=== PATIENT | male | born 1955 | race Caucasian/White ===

== ENCOUNTER 2018-11-04 07:30 | Inpatient (IN) ==
[2018-10-29 11:18] LABS: Appearance,Urine CLEAR; Bilirubin,Urine NEG (NEG); Color,Urine YELLOW; Culture Indicated,Urine NO; Glucose,Urine (UA) NEGATIVE (NEG); Ketones,Urine NEG (NEG); Leukocyte Esterase,Urine NEG /uL (NEG); Nitrate,Urine NEG (NEG); Protein,Urine NEG (NEG); Specific Gravity,Urine 1.012 (1.000-1.035); Urine Blood NEG mg/dL (<0.03); Urobilinogen,Urine NEG (NEG)
[2018-10-29 12:55] LABS: Basophils # (Auto) 0 K/mcL (0.0-0.3); Basophils % (Auto) 0.6 % (0.0-2.0); Eosinophils # (Auto) 0.1 K/mcL (0.0-0.7); Eosinophils % (Auto) 1.7 % (0.0-7.0); Granulocytes % (Auto) 53.6 % (38.0-78.0); Hematocrit 46.2 % (41.0-55.0); Hemoglobin 15.3 g/dL (13.5-16.5); Lymphocytes # (Auto) 2.3 K/mcL (1.5-4.8); Lymphocytes % (Auto) 36.2 % (15.5-49.0); Mean Cell Volume 92.9 fL (80.0-100.0); Mean Corpuscular HGB Conc 33.1 g/dL (31.0-36.0); Mean Platelet Volume 8.6 fL (7.4-10.4); Monocytes # (Auto) 0.5 K/mcL (0.1-0.9); Monocytes % (Auto) 7.9 % (1.0-12.0); Platelet Count 192 K/mcL (140-440); RBC 4.97 M/mcL (4.50-5.90); Red Cell Distribution Width 14.3 % (11.5-14.5); WBC 6.4 K/mcL (4.5-11.0)
[2018-10-29 13:04] LABS: Prothrombin Time 13.5 sec (11.9-14.5)
[2018-10-29 13:22] LABS: Blood Urea Nitrogen 16 mg/dl (8-23); Calcium 9.5 mg/dl (8.6-10.4); Carbon Dioxide 26 mmol/L (22-30); Chloride 101 mmol/L (96-108); Glomerular Filtration Rate 80; Glucose 103 mg/dL (70-105)
[~2018-11-04 07:30] MED LIST: 0.9 % SODIUM CHLORIDE 9 ML, KETOROLAC 30 MG, ROPIVACAINE HCL/PF 49.5 ML, EPINEPHrine 0.... IJ SCH; ACETAMINOPHEN 500 MG TABLET PO SCH; CELECOXIB 200 MG CAPSULE PO SCH; PREGABALIN 75 MG CAPSULE PO SCH; ceFAZolin 3 GM in DEXTROSE 5% IN WATER 50 ML IV SCH; oxyCODONE 10 MG TAB.ER.12H PO SCH
[2018-11-04] MEDS ORDERED: ePHEDrine 50 MG/ML AMPUL IV ONE (14:45)
[2018-11-04] MEDS ORDERED: DEXAMETHASONE 10 MG/ML VIAL IV ONE (14:45)
[2018-11-04] MEDS ORDERED: LIDOCAINE HCL/PF 100 MG/5 ML SYRINGE IV ONE (14:45)
[2018-11-04] MEDS ORDERED: PHENYLEPHRINE 10 MG/ML VIAL IV ONE (14:45)
[2018-11-04] MEDS ORDERED: ROPIVACAINE HCL/PF 20 ML VIAL IJ ONE (14:45)
[2018-11-04] MEDS ORDERED: MIDAZOLAM 2 MG/2 ML VIAL IV ONE (14:45)
[2018-11-04] MEDS ORDERED: KETAMINE 100 MG/ML ML IV ONE (14:45)
[2018-11-04] MEDS ORDERED: ONDANSETRON 4 MG/2 ML VIAL IV ONE (14:45)
[2018-11-04] MEDS ORDERED: TRANEXAMIC ACID 1,000 MG/10 ML VIAL IV ONE (14:45)
[2018-11-04] MEDS ORDERED: PROPOFOL 200 MG/20 ML VIAL IV ONE (14:45)
[2018-11-04] MEDS ORDERED: GENTAMICIN SULFATE 800 MG/20 ML VIAL IR ONE (15:11)
--- NOTE | 2018-11-04 16:24 | Brief Operative Note ---
Date of procedure: 11/04/18 Pre-op diagnosis: Left knee djd severe Post-op diagnosis: same Procedure: left robotic tka Grafts/Implants: Yes Anesthesia: KAYLEIGH Surgeon: Chung Tenorio Methods Examiner: Florentin Chandra Estimated blood loss (cc): 50 Tourniquet Time (Minutes): 55 Specimens Removed/Pathology: none sent Condition: stable Disposition: PACU
[2018-11-04] MEDS ORDERED: BENZOCAINE/MENTHOL 1 LOZENGE PO PRN (16:25)
[2018-11-04] MEDS ORDERED: BISACODYL 10 MG SUPP.RECT PR PRN (16:25)
[2018-11-04] MEDS ORDERED: HYDROmorphone 2 MG/ML VIAL IV PRN (16:25)
[2018-11-04] MEDS ORDERED: TRANEXAMIC ACID 1,000 MG/10 ML VIAL IV SCH (16:25)
[2018-11-04] MEDS ORDERED: MAGNESIUM HYDROXIDE 30 ML ORAL.SUSP PO PRN (16:25)
[2018-11-04] MEDS ORDERED: ONDANSETRON 4 MG/2 ML VIAL IV PRN (16:25)
[2018-11-04] MEDS ORDERED: POLYETHYLENE GLYCOL 3350 17 GM PACKET PO PRN (16:25)
[2018-11-04] MEDS ORDERED: ACETAMINOPHEN 325 MG TABLET PO PRN (16:25)
[2018-11-04] MEDS ORDERED: FLEETS ADULT ENEMA PR PRN (16:25)
[2018-11-04] MEDS ORDERED: HYDROmorphone 2 MG TABLET PO PRN (16:28)
[2018-11-04] MEDS ORDERED: diphenhydrAMINE 25 MG CAPSULE PO PRN (16:52)
[2018-11-04] MEDS: KETOROLAC 15 MG/ML VIAL IV SCH ×2 (18:08→23:40)
--- NOTE | 2018-11-04 18:28 | XRay Report ---
CLINICAL INFORMATION: Post-Op Total Knee COMPARISON: None. FINDINGS: Total knee prostheses is anatomically aligned. No osseous abnormalities. Periarticular gas and soft tissue swelling seen as expected. IMPRESSION: Negative Interpreted and Authenticated by: Lavelle Conner 11/04/18
[2018-11-04] MEDS: HYDROcodone/APAP 10/325MG TABLET PO PRN (19:42)
[2018-11-04] MEDS: diphenhydrAMINE 25 MG CAPSULE PO PRN (19:42)
[2018-11-04] MEDS: DOCUSATE SODIUM 100 MG CAPSULE PO SCH (20:35)
[2018-11-04] MEDS: ALLOPURINOL 100 MG TABLET PO SCH (20:35)
[2018-11-04] MEDS: ASPIRIN 325 MG ENTERIC COATED TABLET PO SCH (20:35)
[2018-11-04] MEDS: 0.9 % SODIUM CHLORIDE 10 ML SYRINGE IV SCH (20:38)
[2018-11-04] MEDS ORDERED: SENNOSIDES 1 TABLET PO SCH (21:00)
[2018-11-04] MEDS ORDERED: TEMAZEPAM 15 MG CAPSULE PO PRN (21:00)
[2018-11-04] MEDS: ceFAZolin 1 GM VIAL IV SCH (21:45)
[2018-11-04] MEDS: 0.45 % SODIUM CHLORIDE 1,000 ML IV SCH (22:04)
[2018-11-05] MEDS: HYDROcodone/APAP 10/325MG TABLET PO PRN ×4 (01:14→13:36)
[2018-11-05] MEDS: 0.45 % SODIUM CHLORIDE 1,000 ML IV SCH ×2 (02:18→12:51)
[2018-11-05] MEDS: KETOROLAC 15 MG/ML VIAL IV SCH ×2 (05:12→11:15)
[2018-11-05] MEDS: ceFAZolin 1 GM VIAL IV SCH (05:12)
[2018-11-05] MEDS: 0.9 % SODIUM CHLORIDE 10 ML SYRINGE IV SCH (05:13)
[2018-11-05] MEDS: diphenhydrAMINE 25 MG CAPSULE PO PRN (05:22)
--- NOTE | 2018-11-05 07:31 | Orthopedic Progress Note ---
Subjective Patient information: Note initiated : 11/05/18 at 7:30 am Service Date, if different from initiated Date: [] Patient: Flakito Gallegos 63 y/o M admitted on 11/04/18 for Left Total Knee Arthroplasty [place]. Chief Complaint: [Pt is stable this morning on post operative day 1 without any significant concerns or complaints. Patients vital signs have remained stable. Patients dressing is dry and is grossly intact from a neurovascular and motor standpoint. Patients 10 point ROS is otherwise negative. ] Objective Vital signs: Vital Signs Temp Pulse Resp BP Pulse Ox 11/05/18 04:00 97.9 F 92 H 18 144/68 93 11/04/18 23:42 96 11/04/18 22:59 97.6 F 86 18 137/80 93 11/04/18 20:31 94 H 136/74 95 11/04/18 20:25 95 11/04/18 19:32 91 H 126/70 96 11/04/18 19:01 85 131/76 95 11/04/18 18:31 87 127/73 95 11/04/18 18:16 81 121/70 96 11/04/18 18:02 82 114/67 94 11/04/18 17:46 81 109/66 96 11/04/18 17:31 97.4 F 84 106/67 92 11/04/18 17:00 98.4 F 89 14 121/66 95 11/04/18 16:50 98.6 F 88 16 105/50 11/04/18 16:43 94 H 22 102/47 96 11/04/18 16:35 94 H 17 96/50 96 11/04/18 16:30 94 H 18 97/49 97 11/04/18 16:26 97.7 F 94 H 20 119/48 98 11/04/18 11:18 97.4 F 94 H 20 137/78 96 Intake and Output 11/04/18 11/05/18 11/05/18 21:59 05:59 13:59 Intake Total 3440 1200 Output Total 400 1175 Balance 3040 25 Intake: Oral 240 1200 IV - Manual Only 3200 Output: Urine Catheter Amount 400 450 Void Amount 725 Other: Urine Appearance Clear Clear Urine Color Pale Bright Yellow Urine Odor Normal Normal Weight 308 lb Intake & Output: Intake & Output 11/04/18 11/05/18 11/05/18 21:59 05:59 13:59 Intake Total 3440 1200 Output Total 400 1175 Balance 3040 25 Weight 308 lb Intake: Oral 240 1200 IV - Manual Only 3200 Output: Urine Catheter Amount 400 450 Void Amount 725 Other: Urine Appearance Clear Clear Urine Color Pale Bright Yellow Urine Odor Normal Normal Incision: Yes healing Incision clean and dry: Yes Dressing: Yes clean Weight bearing status: full Neurological exam IM: Yes motor sensory intact, Yes neurovascular intact Extremities exam IM: Yes Foot pink and warm, Yes neurovascular intact - Labs CBC & BMP: 11/05/18 04:40 10/29/18 09:50 Labs: Orthopedic Labs 10/29/18 09:50 PT 13.5 INR 1.0 APTT 39 H 11/05/18 10/29/18 04:40 09:50 Hgb 15.3 Hct 40.1 L 46.2 Assessment and Plan (1) Hx of total knee arthroplasty The patient has been educated regarding dressing care, Physical Therapy recommendations, home exercises, restrictions, and follow up appointments. The patient has had all necessary DME prescribed. The patient has remained relatively stable during their hospital course. Leave Dermabond patch intact until followup Status: Acute
--- NOTE | 2018-11-05 07:33 | Discharge Summary ---
Ortho Discharge - TKA - Patient Instructions Diet: Regular Diet Activity: activity as tolerated, weight bearing as tolerated Total Knee Protocol: For Total Knee: Start ROM RAFAEL with stationary bike or rocking chair. Work on gaining full extension of knee. Posterior dislocation precautions provided. Hip abductor strengthening and gait training instructions provided. Apply Cryocuff as instructed. Dressing Care: May shower in 2 days - Problem Maintenance (1) Hx of total knee arthroplasty Status: Acute - Follow Up Plan Follow Up Appointments: Florentin Chandra PA-C [Physician Agronomist] - 11/19/18 8:40 am Disposition: Home, Self-Care Prognosis: Good Rehab Potential: Good I certify that the patient requires SNF services: No Overall status at discharge: patient is progressing back to baseline - Orders For Discharge Prescriptions: Aspirin [Ecotrin] 325 mg PO BID #60 tab.ec Docusate Sodium [Colace] 100 mg PO BID #60 cap HYDROcodone/APAP 10/325MG [[place] 10-325Mg] 1 - 2 tab PO Q4HP PRN #75 tab PRN Reason: Pain Level 3-6
--- NOTE | 2018-11-05 08:03 | Operative Note ---
DATE OF OPERATION: 11/04/2018 PREOPERATIVE DIAGNOSIS: Left knee severe degenerative arthritis. POSTOPERATIVE DIAGNOSIS: Left knee severe degenerative arthritis. PROCEDURE: Left robotic total knee arthroplasty. SURGEON: Chung Tenorio MD ELECTRONICS PROCESSING SUPERVISOR: Florentin Chandra PA-C. The PA's assistance was required for the safe and efficient completion of the entire case. This provider's expertise and technical skill were required throughout the case. The PA assisted with preoperative coordination, intraoperative retraction, wound closure, dressing and splint application, as well as postoperative documentation and care coordination. ANESTHESIA: General LMA. COMPLICATIONS: None. TOTAL TOURNIQUET TIME: 55 minutes. IMPLANTS PLACED: A size 5 femur and size 5 tibial baseplate with an 11 mm poly insert with a 39 mm oval patella. DESCRIPTION OF PROCEDURE: The patient was brought to the operating room and put to sleep with general anesthesia. Once sleep and sterilely prepped and draped, we confirmed the operative site by initials, consent form and x-rays. A midline incision was made, mid vastus approach on the left knee. We exposed the knee showing severe arthritis in the patellofemoral joint and medial compartments. We then used the robot, placed two pins above and below the knee, registered the center of hip rotation, medial and lateral malleoli and 30 points in the femur and tibia. Intra-articular pins were registered. The robot was registered and then we brought in the robot. After adjusting the implant for the tension of the ligaments, both flexion at 90 and extension at 15 degrees. Once perfectly positioned and balanced, we then proceeded with the case. The bony cuts were made. The implants were trialled. Spurs were removed. Meniscus was removed and the resurfacing of the patella was accomplished. The implants were noted above size 5 femur and size 5 tibial baseplate with an 11 mm poly with a 39 mm oval patellar button. This restored the center and tracking of the patella. The ligaments were balanced in both extension and flexion. All these components were cemented into place. Excess cement was removed. A mid vastus approach closed with Stratafix x2. Skin was closed with #1 Stratafix and adhesive closure. The patient tolerated this well. Tourniquet deflated at 55 minutes. RBH:yong Job ID: [id number] Doc ID: [id number] Chung Tenorio MD
[2018-11-05] MEDS: ASPIRIN 325 MG ENTERIC COATED TABLET PO SCH (08:42)
[2018-11-05] MEDS: ALLOPURINOL 100 MG TABLET PO SCH (08:42)
[2018-11-05] MEDS: DOCUSATE SODIUM 100 MG CAPSULE PO SCH (08:42)
[2018-11-05] MEDS ORDERED: HYDROCHLOROTHIAZIDE 12.5 MG CAPSULE PO SCH (09:00)
[2018-11-05] MEDS ORDERED: DOCUSATE SODIUM 100 MG CAPSULE PO SCH (09:00)
[2018-11-05] MEDS ORDERED: LISINOPRIL 10 MG TABLET PO SCH (09:00)
[2018-11-05] MEDS ORDERED: ASPIRIN 81 MG TAB.CHEW PO SCH (09:00)
== END 2018-11-05 15:00 | disposition home or self-care (01) | DRG 554 ==
LOC: MEDSUR 10:48
PROVIDERS: ADMIT Orthopaedic Surgery; ATTEND Orthopaedic Surgery